=== PATIENT | male | born 1985 | race Two or more races ===

== ENCOUNTER 2018-02-23 01:11 | Emergency (ER) | payer MEDICAID ==
[~2018-02-23] VITALS: Ht 180.3 cm; Wt 78.5 kg
[2018-02-23] MEDS ORDERED: ALBUTEROL SULF 2.5 MG/0.5ML(0.5%) NEB SOLN NEB ONE (01:30)
[2018-02-23] MEDS ORDERED: IPRATROPIUM BROM 0.5 MG/2.5ML INH SOL NEB ONE (01:30)
[2018-02-23] MEDS ORDERED: SODIUM CHLORIDE 0.9% 1,000 ML IV ONE (04:45)
[2018-02-23] MEDS ORDERED: LEVOFLOXACIN 750MG 150 ML IV ONE (04:45)
[2018-02-23 06:14] LABS: Basophils # (auto) 0.1 uL; Eosinophils # (auto) 0.9 uL; Eosinophils % (auto) 9.5 % (0.0-7.0); Hematocrit 47.6 % (41.0-53.0); Hemoglobin 15.8 g/dL (13.5-17.5); Lymphocytes # (auto) 3.1 uL; Lymphocytes % (auto) 33.9 % (10.0-50.0); Mean Corpuscular Hemoglobin 28.9 pg (28.0-32.0); Mean Corpuscular Hgb Conc. 33.2 g/dL (32.0-36.0); Mean Corpuscular Volume 87.1 fL (80.0-100.0); Monocytes # (auto) 0.6 uL; Monocytes % (auto) 6.1 % (0.0-12.0); Neutrophils # (auto) 4.5 uL; Neutrophils % (auto) 49.5 % (37.0-80.0); Nucleated Red Blood Cells % 0.2 %; Platelet Count (auto) 346 10^3/uL (140-450); Red Blood Cells 5.46 10^6/uL (4.5-5.90); Red Cell Distribution Width 13.9 % (11.8-14.3); White Blood Cell 9.1 10^3/uL (4.4-10.8)
[2018-02-23 06:31] LABS: Calcium 8.8 mg/dL (8.5-10.1); Potassium 3.8 mmol/L (3.5-5.1)
[2018-02-23 06:37] LABS: BUN/Creatinine Ratio 9.5; Bilirubin, Total 0.3 mg/dL (0.2-1.0); Total Protein 7.7 g/dL (6.4-8.2)
[2018-02-23] MEDS ORDERED: methylPREDNISolone SOD SUCC 125 MG/2 ML VL ONE (07:00)
[2018-02-23] MEDS ORDERED: methylPREDNISolone SOD SUCC 125 MG/2 ML VL IV ONE (07:00)
[2018-02-23 08:14] VITALS: BP 145/85
== END 2018-02-23 08:20 | disposition home or self-care (01) ==
LOC: ER 01:11
DX: J18.1 Lobar pneumonia, unspecified organism (principal)
CPT/HCPCS: 36415; 71045; 80053; 85025; 94640; 96365; 96366; 96375; 99285; J1956; J2930; J7030; J7611; J7644

== ENCOUNTER 2018-03-08 03:33 | Emergency (ER) | payer MEDICAID ==
[~2018-03-08] VITALS: Ht 180.3 cm; Wt 80.9 kg
[2018-03-08 04:13] VITALS: BP 152/100
[2018-03-08] MEDS ORDERED: DEXAMETHASONE SOD PHOS 10MG/1ML VIAL INJ IM ONE (04:15)
[2018-03-08] MEDS ORDERED: IPRATROPIUM BROM 0.5 MG/2.5ML INH SOL NEB ONE (04:15)
[2018-03-08] MEDS ORDERED: ALBUTEROL SULF 2.5 MG/0.5ML(0.5%) NEB SOLN NEB ONE (04:15)
[2018-03-08] MEDS ORDERED: DEXAMETHASONE 4 MG TAB PO ONE (04:30)
== END 2018-03-08 05:43 | disposition home or self-care (01) ==
LOC: ER 03:34
DX: J45.909 Unspecified asthma, uncomplicated (principal)
CPT/HCPCS: 71046; 94640; 96372; 99284; J1100; J7611; J7644

== ENCOUNTER 2021-09-02 10:18 | Emergency (ER) | payer MEDICAID ==
[~2021-09-02] VITALS: Ht 180.3 cm; Wt 83.9 kg
[2021-09-02 10:52] VITALS: BP 139/88
[2021-09-02] MEDS ORDERED: methylPREDNISolone SOD SUCC 125 MG/2 ML VL IM ONE (11:15)
[2021-09-02] MEDS ORDERED: ALBUTEROL SULF 2.5 MG/0.5ML(0.5%) NEB SOLN NEB ONE (11:15)
[2021-09-02] MEDS ORDERED: IPRATROPIUM BROM 0.5 MG/2.5ML INH SOL NEB ONE (11:15)
[2021-09-02] MEDS ORDERED: ALBU108A5 IN (11:39)
[2021-09-02] MEDS ORDERED: PRED20TA2 PO (11:39)
== END 2021-09-02 11:52 | disposition home or self-care (01) ==
LOC: ER 10:18
DX: J45.901 Unspecified asthma with (acute) exacerbation (principal); F12.10 Cannabis abuse, uncomplicated
CPT/HCPCS: 94640; 96372; 99283; J2930; J7644

== ENCOUNTER → 2021-09-02 | Emergency (ER) | payer MEDICAID ==
[~2021-09-02] MED LIST: ALBU108A5 IN; PRED20TA2 PO
== END | disposition left against medical advice (07) ==
LOC: ER 04:06
DX: J45.909 Unspecified asthma, uncomplicated (principal); Z53.21 Procedure and treatment not carried out due to patient leaving prior to being seen by health care provider